=== PATIENT | female | born 1950 | race Caucasian/White ===

== ENCOUNTER 2017-08-31 12:24 | Outpatient (CLI) | payer MEDICARE ==
--- NOTE | 2017-08-31 19:11 | NM ---
NUCLEAR MEDICINE PARATHYROID SCAN WITH SPECT: 08/31/17 HISTORY: 67-year-old female with hyperparathyroidism. TECHNIQUE: 27.0 millicuries technetium 99m-Sestamibi injected IV. Planar scintigraphy in anterior, right anterior oblique, and left anterior oblique views. Field of view: upper chest to vertex of head. Immediate, one hour delayed, and two hour delayed planar scintigraphic images. Noncontrast CT performed for SPECT. CT-SPECT fusion studies performed at one hour and 2.5 hours. FINDINGS: The CT images demonstrate two low density thyroid nodules, which are symmetrical with respect to each other, in the right and left lobes of the thyroid gland, one on each side. There is a smaller soft tissue density nodule abutting the outer surface of the trachea, posterior to the right lobe of the t hyroid gland. Bilaterally symmetrical foci of increased sestamibi uptake are symmetrically present, in the region o f the thyroid gland bilaterally on the immediate and one hour delayed images, one on each side. Residual activity is present symmetrically in these areas on the two hour delayed study, but there is also strong residual activity in the bilateral parotid glands and submandibular glands, as well as o ral cavity. There is misregistration (due to shift in patient position) between the CT images and the SPECT image s on the one hour CT/SPECT fusion study, such that the left focus of increased uptake overlies the le ft sternoclavicular joint, and the right focus of increased uptake overlies the right thyroid nodule. There is a much smaller nodule posterior to the right lobe of the thyroid gland, abutting the right side of the trachea on the CT images. On the 2.[address]-SPECT fusion images, the left focus of increased uptake now overlaps the l eft intrathyroidal nodule, while the one on the right overlaps the esophagus. IMPRESSION: The results are indeterminate and complex, partly due to patient shift in position between the CT iglesia ges and the SPECT images, confounding the localization of the areas of increased uptake. There are tw o foci of symmetrically increased uptake, apparently within the right and left lobes of the thyroid gland, which questionably represent bilateral intrathyroidal parathyroid adenomas, but this is not ce rtain. POS: [facility]
== END 2017-08-31 12:25 | disposition home or self-care (01) ==
LOC: NM 12:24
PROVIDERS: ATTEND Otolaryngology Plastic Surgery within the Head & Neck
DX: E21.3 Hyperparathyroidism, unspecified (principal); R93.8 Abnormal findings on diagnostic imaging of other specified body structures
CPT/HCPCS: 78072; A9500

== ENCOUNTER 2017-09-13 15:11 | Outpatient (CLI) | payer MEDICARE | END 2017-09-13 15:12 | disposition home or self-care (01) | LOC: BICULT 15:11 | PROVIDERS: ATTEND Otolaryngology Plastic Surgery within the Head & Neck | DX: E21.3 Hyperparathyroidism, unspecified (principal); E04.2 Nontoxic multinodular goiter | CPT/HCPCS: 76536 ==

== ENCOUNTER 2017-10-10 06:58 | Day surgery (SDC) | payer MEDICARE ==
[2017-10-09 11:51] VITALS: BMI 26.7
[2017-10-10 08:04] LABS: Hemoglobin 13.8 g/dL (12.0-16.0)
[2017-10-10 08:26] LABS: Anion Gap 16 mmol/L (10-20); BUN (Urea Nitrogen) 17 mg/dL (9.8-20.1); Calc. Creatinine Clearance 105 mL/min (70-130); Calcium 9.7 mg/dL (7.8-10.44); Carbon Dioxide 19 mmol/L (23-31); Chloride 109 mmol/L (98-107); Estimated GFR-MDRD Greater than 90; Glucose 111 mg/dL (80-115); Potassium 4.3 mmol/L (3.5-5.1); Sodium 140 mmol/L (136-145)
[2017-10-10] MEDS ORDERED: Midazolam HCl 2 mg/2 ml Vial ONE (08:28)
[2017-10-10] MEDS ORDERED: Fentanyl 100 MCG/2 ML VIAL ONE ×2 (08:28→10:42)
[2017-10-10] MEDS ORDERED: Lidocaine 1% w/Epinephrine 1:100K 30 ML VIAL ONE (08:34)
[2017-10-10] MEDS ORDERED: Clindamycin/D5W 900 mg/50 ml Premix Bag ONE (09:20)
[2017-10-10] MEDS ORDERED: PHENYLEPHRINE-NS 100 MCG/ML 10 ML SYRINGE ONE (09:29)
[2017-10-10] MEDS ORDERED: Lidocaine 1% PF 5 ML VIAL ONE (09:29)
[2017-10-10] MEDS ORDERED: PROPOFOL 200 MG/20 ML VIAL ONE (09:29)
[2017-10-10] MEDS ORDERED: Ondansetron HCl/PF 4 MG/2 ML Vial ONE (09:29)
[2017-10-10] MEDS ORDERED: Glycopyrrolate 0.2 MG/ML 5 ML SYRINGE ONE (09:29)
[2017-10-10] MEDS ORDERED: Dexamethasone 20 MG/5 ML VIAL ONE (09:29)
[2017-10-10] MEDS ORDERED: Hydrocodone-Acetamin 15 ML UDCUP ONE (11:56)
--- NOTE | 2017-10-10 12:24 | OP ---
PREOPERATIVE DIAGNOSES: 1. Hyperparathyroidism. 2. Hypercalcemia. POSTOPERATIVE DIAGNOSES: 1. Hyperparathyroidism. 2. Hypercalcemia. PROCEDURES: Right parathyroidectomy. SURGEON: Ady Miller M.D. ESTIMATED BLOOD LOSS: Less than 5 mL COMPLICATIONS: None. ANESTHESIA: GETA with laryngeal nerve monitoring. PROCEDURE: The patient was taken to the operating room and placed supine on the table. General endo tracheal anesthesia was obtained by the Anesthesia staff. The laryngeal electrodes were confirmed to be between the vocal cords bilaterally. Following this, the patient was prepped and draped in stand lucio surgical fashion. A shoulder roll was placed. A 6 mL of 1% lidocaine with 1:100,000 epinephrine were injected into the anticipated skin incision. Following this, incision was made with #15 blade through skin and subcutaneous tissue and the platysmal layer. Subplatysmal flaps were elevated super iorly and inferiorly. The strap muscles were identified in the midline and were . Followin g this, attention was then down the right thyroid area, staying immediately adjacent to the thyroid g land. The gland was retracted medially. The right recurrent laryngeal nerve was identified. The ri ght superior parathyroid gland was noted to be small and the right inferior parathyroid gland was mul tiple times larger, both of these glands were removed for pathological analysis which confirmed that they were both parathyroid tissue and confirming that there was one adenoma and one normal gland. Th e procedure was then ended. The wound was irrigated and a small drain was placed. A small piece of ____ was placed over this area where the ____ was previously. The wound was then closed using Monocr yl stitches for the strap muscle layer, the platysmal layer and subcutaneous layer. The skin was sarah sed using Dermabond. The patient tolerated the procedure well.
== END 2017-10-10 13:36 | disposition home or self-care (01) ==
LOC: SDC 06:58
PROVIDERS: ATTEND Otolaryngology Plastic Surgery within the Head & Neck
PROC: 0GBR0ZZ Excision of Parathyroid Gland, Open Approach (ICD-10-PCS; principal; 2017-10-10)
DX: E21.3 Hyperparathyroidism, unspecified (principal); E04.2 Nontoxic multinodular goiter; G35 Multiple sclerosis; E78.00 Pure hypercholesterolemia, unspecified; F41.8 Other specified anxiety disorders; Z88.0 Allergy status to penicillin; Z79.82 Long term (current) use of aspirin; Z79.899 Other long term (current) drug therapy
CPT/HCPCS: 36415; 80048; 85014; 85018; 88305; 88331; 88334; 88342; 93005; 93010; 96374; J1100; J2001; J2250; J2405; J2704; J3010; J3490

== ENCOUNTER 2017-12-27 11:05 | Outpatient (CLI) | payer MEDICARE ==
--- NOTE | 2017-12-27 12:08 | RAD ---
CHEST PA AND LATERAL: History: 67-year-old female with history of esophageal spasm with pain in the neck going into the midchest. Comparison: 06-09-12 FINDINGS: Heart size is within normal limits. No confluent pneumonia, overt edema, or pleural effusion. IMPRESSION: Minimal stable chronic changes. No acute intrathoracic disease. POS: [facility]
== END 2017-12-27 11:06 | disposition home or self-care (01) ==
LOC: BICRAD 11:05
PROVIDERS: ATTEND Family Medicine
DX: K22.4 Dyskinesia of esophagus (principal)
CPT/HCPCS: 71046

== ENCOUNTER 2018-01-23 09:02 | Outpatient (CLI) | payer MEDICARE ==
--- NOTE | 2018-01-23 11:04 | BD ---
DEXA SCAN: INDICATIONS: Osteoporosis screening. COMPARISON: None. FINDINGS: LUMBAR SPINE BMD (g/cm2) T-SCORE Z-SCORE L1 0.769 -2.0 -0.3 L2 0.956 -0.7 1.2 L3 1.071 -0.1 1.8 L4 1.096 0.3 2.3 L1-L4 0.994 -0.5 1.4 LEFT FEMORAL NECK 0.513 -3.0 -1.4 LEFT TOTAL HIP 0.796 -1.2 0.1 IMPRESSION: Based on the World Health Organization (WHO) criteria, the patient's bone mineral density is osteopor otic. The patient is at high risk for fracture. POS: [facility]
== END 2018-01-23 09:03 | disposition home or self-care (01) ==
LOC: BICMAMMO 09:02
PROVIDERS: ATTEND Obstetrics & Gynecology
DX: Z12.31 Encounter for screening mammogram for malignant neoplasm of breast (principal); Z13.820 Encounter for screening for osteoporosis; M81.0 Age-related osteoporosis without current pathological fracture; Z80.3 Family history of malignant neoplasm of breast
CPT/HCPCS: 77063; 77067; 77080

== ENCOUNTER 2019-01-24 10:31 | Outpatient (CLI) | payer MEDICARE ==
--- NOTE | 2019-01-24 13:57 | MMO ---
Bilateral MAMMO Bilat Screen [facility]. CLINICAL HISTORY: Patient is 68 years old and is seen for screening. The patient has the following family history of breast cancer: mother, at age 79, malignant (generic). The patient has no personal history of cancer. The patient has a history of left Stereotatic Biopsy in 2003 - benign. VIEWS: The views performed were: bilateral craniocaudal with tomosynthesis; bilateral mediolateral oblique with tomosynthesis; and left exaggerated craniocaudal. FILMS COMPARED: The present examination has been compared to prior imaging studies performed at [facility] on 10/06/2014, 10/12/2015, 01/08/2017 and 01/23/2018. This study has been interpreted with the assistance of computer-aided detection. MAMMOGRAM FINDINGS: There are scattered fibroglandular densities. Finding 1: There are benign appearing calcifications seen in both breasts. There are no suspicious masses, calcifications or areas of architectural distortion. Finding 2: There are stable post operative changes seen in the left breast. There are no suspicious masses, suspicious calcifications, or new areas of architectural distortion. IMPRESSION: THERE IS NO MAMMOGRAPHIC EVIDENCE OF MALIGNANCY. A ROUTINE FOLLOW-UP MAMMOGRAM IN 1 YEAR IS RECOMMENDED. THE RESULTS OF THIS EXAM WERE SENT TO THE PATIENT. ACR BI-RADS Category 2 - Benign finding MAMMOGRAPHY NOTE: 1. A negative mammogram report should not delay a biopsy if a dominant of clinically suspicious mass is present. 2. Approximately 10% to 15% of breast cancers are not detected by mammography. 3. Adenosis and dense breasts may obscure an underlying neoplasm. Reported by: OSMANY LAYTON MD Electonically Signed: [id number]
== END 2019-01-24 10:32 | disposition home or self-care (01) ==
LOC: BICMAMMO 10:31
PROVIDERS: ATTEND Obstetrics & Gynecology
DX: Z12.31 Encounter for screening mammogram for malignant neoplasm of breast (principal); Z80.3 Family history of malignant neoplasm of breast
CPT/HCPCS: 77063; 77067

== ENCOUNTER 2020-02-18 09:37 | Outpatient (CLI) | payer MEDICARE ==
--- NOTE | 2020-02-18 11:22 | MMO ---
Bilateral MAMMO Bilat Screen [facility]. CLINICAL HISTORY: Patient is 69 years old and is seen for screening. The patient has the following family history of breast cancer: mother, at age 79, malignant (generic). The patient has no personal history of cancer. The patient has a history of left Stereotatic Biopsy in 2003 - benign. VIEWS: The views performed were: bilateral craniocaudal with tomosynthesis and bilateral mediolateral oblique with tomosynthesis. FILMS COMPARED: The present examination has been compared to prior imaging studies performed at [facility] on 10/12/2015, 01/08/2017, 01/23/2018 and 01/24/2019. This study has been interpreted with the assistance of computer-aided detection. MAMMOGRAM FINDINGS: There are scattered fibroglandular densities. Benign calcifications are noted bilaterally. There are stable left post-operative changes. There are no suspicious masses, suspicious calcifications, or new areas of architectural distortion. IMPRESSION: THERE IS NO MAMMOGRAPHIC EVIDENCE OF MALIGNANCY. A ROUTINE FOLLOW-UP MAMMOGRAM IN 1 YEAR IS RECOMMENDED. THE RESULTS OF THIS EXAM WERE SENT TO THE PATIENT. ACR BI-RADS Category 2 - Benign finding MAMMOGRAPHY NOTE: 1. A negative mammogram report should not delay a biopsy if a dominant of clinically suspicious mass is present. 2. Approximately 10% to 15% of breast cancers are not detected by mammography. 3. Adenosis and dense breasts may obscure an underlying neoplasm. Reported by: RIKY ADLER MD Electonically Signed: [id number]
== END 2020-02-18 09:38 | disposition home or self-care (01) ==
LOC: BICMAMMO 09:37
PROVIDERS: ATTEND Obstetrics & Gynecology
DX: Z12.31 Encounter for screening mammogram for malignant neoplasm of breast (principal); Z80.3 Family history of malignant neoplasm of breast
CPT/HCPCS: 77063; 77067

== ENCOUNTER 2020-03-29 09:14 | Emergency (ER) | payer MEDICARE ==
--- NOTE | 2020-03-29 10:38 | CT ---
Head CT without contrast: 03/29/2020 COMPARISON: None HISTORY: Dizziness, recent head trauma, fall TECHNIQUE: Axial CT imaging at 2.5 mm intervals from the vertex through the skull base without contra st. Coronal and sagittal reformatted imaging obtained. FINDINGS: The visualized paranasal sinuses and mastoid air cells are well-aerated. No displaced regulo rial fracture. No intracranial hemorrhage, midline shift, or mass effect. No ventricular enlargement. Mild periventr icular hypodensity noted suggesting small vessel disease, right greater than left. IMPRESSION: No intracranial hemorrhage or displaced calvarial fracture.
--- NOTE | 2020-03-29 10:40 | CT ---
CT cervical spine noncontrast HISTORY: Fall. Neck injury. FINDINGS: Vertebral body heights and alignment are maintained. Cervicothoracic junction is intact. Ve ry mild osteophytosis of the vertebral bodies and facets. No acute fracture or dislocation. A 1.4 cm cyst is incidentally noted within the left thyroid lobe. IMPRESSION : No acute abnormalities are demonstrated.
[2020-03-29] MEDS ORDERED: Meclizine HCl 25 MG TAB ONE (11:02)
[2020-03-29 11:38] LABS: #Eosinphils 0.1 thou/uL (0.0-0.7); #Lymphocytes 1.2 thou/uL (1.20-3.40); #Monocytes 0.9 thou/uL (0.11-0.59); #Neutrophils 5.7 thou/uL (1.40-6.50); %Basophils 0.2 % (0.0-1.0); %Eosinophils 1.5 % (0.0-10.0); %Lymphocytes 14.9 % (21.0-51.0); %Monocytes 11.2 % (0.0-10.0); %Neutrophils 72.3 % (42.0-75.0); Mean Corpuscular Hemoglobin 29.7 pg (27.0-31.0); Mean Corpuscular Volume 89.9 fL (78.0-98.0); Mean Platelet Volume 8.3 fL (7.4-10.4); Platelet Count 270 thou/uL (130-400); RBC Distribution Width 12.4 % (11.5-14.5); Red Blood Cell (RBC) Count 4.37 mill/uL (4.20-5.40); White Blood Cell (WBC) Count 7.9 thou/uL (4.8-10.8)
[2020-03-29 11:53] LABS: ALT (SGPT) 30 U/L (8-55); AST (SGOT) 21 U/L (5-34); Albumin 3.7 g/dL (3.4-4.8); Alkaline Phosphatase 57 U/L (40-110); Anion Gap 10 mmol/L (10-20); BUN (Urea Nitrogen) 12 mg/dL (9.8-20.1); Bilirubin, Total 0.5 mg/dL (0.2-1.2); Calc. Creatinine Clearance 0 mL/min (70-130); Calcium 8.8 mg/dL (7.8-10.44); Carbon Dioxide 29 mmol/L (23-31); Chloride 106 mmol/L (98-107); Globulin 2.2 g/dL (2.4-3.5); Glucose 86 mg/dL (80-115); Potassium 4.3 mmol/L (3.5-5.1); Protein, Total 5.9 g/dL (6.0-8.3); Sodium 141 mmol/L (136-145)
--- NOTE | 2020-04-17 16:13 | EKG ---
Test Reason : Blood Pressure : / mmHG Vent. Rate : 068 BPM Atrial Rate : 068 BPM P-R Int : 180 ms QRS Dur : 106 ms QT Int : 408 ms P-R-T Axes : 054 002 097 degrees QTc Int : 433 ms Normal sinus rhythm Cannot rule out Anterior infarct , age undetermined Abnormal ECG Confirmed by BERTHA ZIMMER DO ([id number]), videotape editor SERGE DUNN ([id number]) on 04/17/2020 4:13:07 PM Referred By: Confirmed By:BERTHA ZIMMER DO
== END 2020-03-29 12:49 | disposition home or self-care (01) ==
LOC: ERS 09:14
DX: S00.03XA Contusion of scalp, initial encounter (principal); R42 Dizziness and giddiness; E78.00 Pure hypercholesterolemia, unspecified; Z79.899 Other long term (current) drug therapy; W18.30XA Fall on same level, unspecified, initial encounter
CPT/HCPCS: 36415; 70450; 72125; 80053; 85025; 93005

== ENCOUNTER 2020-05-22 00:58 | Emergency (ER) | payer MEDICARE ==
[2020-05-22] MEDS ORDERED: Metoclopramide 10 MG/10 ML UDCUP ONE (02:12)
[2020-05-22] MEDS ORDERED: diphenhydrAMINE 12.5 MG/5 ML UDCUP ONE (02:12)
[2020-05-22] MEDS ORDERED: methylPREDNISolone Sod Succ/PF 125 MG/2 ML VIAL ONE (02:12)
[2020-05-22] MEDS ORDERED: diphenhydrAMINE 50 MG/ML VIAL ONE (02:13)
[2020-05-22] MEDS ORDERED: Metoclopramide HCl 10 MG/2 ML VIAL ONE (02:13)
== END 2020-05-22 03:28 | disposition home or self-care (01) ==
LOC: ERS 00:58
DX: R51.9 Headache, unspecified (principal); G35 Multiple sclerosis; E78.5 Hyperlipidemia, unspecified
CPT/HCPCS: 70450; 96365; 96375; J1200; J2765; J2930; Q0163

== ENCOUNTER 2020-06-22 12:58 | Outpatient (CLI) | payer MEDICARE ==
[~2020-06-22 12:58] MED LIST: Magnevist 469MG/ML 20 ML VIAL ONE
== END 2020-06-22 12:59 | disposition home or self-care (01) ==
LOC: BICMRI 12:58
PROVIDERS: ATTEND Nurse Practitioner Acute Care
DX: G35 Multiple sclerosis (principal); M47.814 Spondylosis without myelopathy or radiculopathy, thoracic region; R93.7 Abnormal findings on diagnostic imaging of other parts of musculoskeletal system; R90.82 White matter disease, unspecified; M47.812 Spondylosis without myelopathy or radiculopathy, cervical region
CPT/HCPCS: 70553; 72156; 72157; A9579

== ENCOUNTER 2020-07-19 12:25 | Outpatient (CLI) | payer MEDICARE | END 2020-07-19 12:26 | disposition home or self-care (01) | LOC: EEG 12:25 | PROVIDERS: ATTEND Psychiatry & Neurology Neurology | DX: G25.3 Myoclonus (principal) | CPT/HCPCS: 95816 ==

== ENCOUNTER 2020-11-22 14:22 | Outpatient (CLI) | payer MEDICARE | END 2020-11-22 14:23 | disposition home or self-care (01) | LOC: BICMAMMO 14:22 | PROVIDERS: ATTEND Family Medicine | DX: Z13.820 Encounter for screening for osteoporosis (principal); Z78.0 Asymptomatic menopausal state; M81.0 Age-related osteoporosis without current pathological fracture | CPT/HCPCS: 77080 ==

== ENCOUNTER 2021-02-21 13:53 | Outpatient (CLI) | payer MEDICARE | END 2021-02-21 13:54 | disposition home or self-care (01) | LOC: BICMAMMO 13:53 | PROVIDERS: ATTEND Obstetrics & Gynecology | DX: Z12.31 Encounter for screening mammogram for malignant neoplasm of breast (principal); Z91.89 Other specified personal risk factors, not elsewhere classified; Z80.3 Family history of malignant neoplasm of breast | CPT/HCPCS: 77063; 77067 ==

== ENCOUNTER 2021-07-14 13:39 | Outpatient (CLI) | payer MEDICARE | END 2021-07-14 13:40 | disposition home or self-care (01) | LOC: BICULT 13:39 | PROVIDERS: ATTEND Otolaryngology Plastic Surgery within the Head & Neck | DX: E04.2 Nontoxic multinodular goiter (principal) | CPT/HCPCS: 76536 ==

== ENCOUNTER 2021-09-29 08:36 | Outpatient (CLI) | payer MEDICARE ==
[~2021-09-29 08:36] MED LIST changes: +Gadobenate Dimeglumine 529 MG/1 ML (20ML VIAL) ONE; -Magnevist 469MG/ML 20 ML VIAL ONE
== END 2021-09-29 08:37 | disposition home or self-care (01) ==
LOC: MRI 08:36
PROVIDERS: ATTEND Psychiatry & Neurology Neurology
DX: G35 Multiple sclerosis (principal); G93.9 Disorder of brain, unspecified; M89.8X8 Other specified disorders of bone, other site
CPT/HCPCS: 70553; 72156; 72157; A9577

== ENCOUNTER 2022-03-02 13:30 | Outpatient (CLI) | payer MEDICARE | END 2022-03-02 13:31 | disposition home or self-care (01) | LOC: BICMAMMO 13:30 | PROVIDERS: ATTEND Obstetrics & Gynecology | DX: Z12.31 Encounter for screening mammogram for malignant neoplasm of breast (principal); Z91.89 Other specified personal risk factors, not elsewhere classified; Z80.3 Family history of malignant neoplasm of breast | CPT/HCPCS: 77063; 77067 ==

== ENCOUNTER 2022-11-29 09:36 | Outpatient (CLI) | payer MEDICARE | END 2022-11-29 09:37 | disposition home or self-care (01) | LOC: BICMAMMO 09:36 | PROVIDERS: ATTEND Family Medicine | DX: M81.0 Age-related osteoporosis without current pathological fracture (principal) | CPT/HCPCS: 77080 ==

== ENCOUNTER 2024-12-16 14:24 | Outpatient (CLI) | payer MEDICARE | END 2024-12-16 14:25 | disposition home or self-care (01) | LOC: BICMAMMO 14:24 | PROVIDERS: ATTEND Family Medicine | DX: M81.0 Age-related osteoporosis without current pathological fracture (principal) | CPT/HCPCS: 77080 ==

== ENCOUNTER 2025-01-21 13:30 | Outpatient (CLI) | payer MEDICARE ==
[2025-01-21 14:14] LABS: Estimated GFR - POC 78.0
== END 2025-01-21 13:31 | disposition home or self-care (01) ==
LOC: SCSMRI 13:30
PROVIDERS: ATTEND Psychiatry & Neurology Sleep Medicine
DX: G35.A Relapsing-remitting multiple sclerosis (principal); G37.9 Demyelinating disease of central nervous system, unspecified
CPT/HCPCS: 36415; 70553; 72156; 76376; 82565